=== PATIENT | male | born 1985 | race Caucasian/White ===

== ENCOUNTER 2018-12-01 01:34 | Inpatient (IN) | payer BC, OTHER ==
[~2018-12-01] VITALS: Ht 175.3 cm; Wt 111.0 kg
[2018-12-01] MEDS ORDERED: MAALOX 30 ML SUSP *UDC PO PRN (02:30)
[2018-12-01] MEDS ORDERED: ACETAMINOPHEN TAB 650MG DOSE (2X325MG) PO PRN (02:30)
[2018-12-01] MEDS ORDERED: MOM 30ML SUSPENSION UDC PO PRN (02:30)
[2018-12-01] MEDS ORDERED: PHARMACY COMMENT (02:53)
[2018-12-01 03:53] VITALS: BP 168/94
[2018-12-01] MEDS ORDERED: TRAZ150T90 PO (08:50)
[2018-12-01] MEDS ORDERED: SAXE1INJ SQ (08:50)
[2018-12-01] MEDS ORDERED: ROSU10TA5 PO (08:50)
[2018-12-01] MEDS ORDERED: ESCI10TA2 PO (08:50)
[2018-12-01] MEDS ORDERED: OMEP-221 PO (08:50)
[2018-12-01] MEDS ORDERED: HYDR-3363 PO (08:50)
[2018-12-01] MEDS ORDERED: ESCITALOPRAM OXALATE 10 MG TAB (LEXAPRO) PO ONE ×2 (09:00→13:00)
[2018-12-01] MEDS ORDERED: ESCITALOPRAM OXALATE 10 MG TAB (LEXAPRO) PO SCH (09:00)
--- NOTE | 2018-12-01 10:43 | HPEPDOC ---
[facility] Medical History & Physical Date of Admission Dec 01, 2018 History and Physical CHIEF COMPLAINT: Stress at home HISTORY OF PRESENT ILLNESS: Patient is a 33-year-old male with past medical history of hyperlipidemia, GERD and elevated blood pressure not on medication presented to mental health unit after undergoing stressor events at home. He states that he is just stress but feels fine. Denies any suicidal ideation or significant depression. Patient has no prior history of mental health illness and medically generally healthy only on cholesterol medication chronically. He s tates that his blood pressure was noted to be elevated about 2 years back and has been working on lifestyle modifications recently by going to the gym more often and trying to lose weight. He denies any physical complaints including chest pain, shortness of breath, fever or chills. PAST MEDICAL HISTORY: Refer to [facility] SOCIAL HISTORY: Denies tobacco, alcohol or illicit drug use. FAMILY HISTORY: Grandfather had diabetes ALLERGIES: Please see below. REVIEW OF SYSTEMS: 10 point review of system negative except as stated in HPI HOME MEDICATIONS: Please see below. PHYSICAL EXAMINATION: General: No acute distress, Alert Eyes: Normal sclera, EOMI, SG HENT: Atraumatic, neck supple, moist mucous membranes Cardiovascular: Normal rate, normal rhythm. No murmurs appreciated. Pulmonary: Clear to auscultation b/l, no wheezing GI: Soft, nontender, nondistended Skin: Warm and dry Neuro: CN grossly intact. No focal deficits. Strengths equal b/l. Psych: oriented x 3 LABORATORY DATA: See below. IMAGING: None MICROBIOLOGY: Please see below. ASSESSMENT AND PLAN: 1. Stress 2/2 recent life events - c/w counseling and care through Psych. - No active suicidal ideation. - No prior mental health illness/diagnosis. 2. Elevated BP - Has been known for 2 years and remained elevated. - Counseled on lifestyle modifications and need to continue to lose weight. - Will start on Norvasc 5 mg daily. - Monitor BP. 3. HLD - Resume home medications. Vital Signs Vital Signs Date Time Temp Pulse Resp B/P (MAP) Pulse Ox O2 Delivery O2 Flow Rate FiO2 12/01/18 08:50 Room Air 12/01/18 03:53 97.4 56 18 168/94 (118) 12/01/18 03:19 98 Home Medications Scheduled Escitalopram Oxalate (Escitalopram Oxalate) 10 Mg Tablet, 10 MG PO DAILY for . Liraglutide (Saxenda) 3 Mg/0.5 Ml Pen.injctr, 1 DOSE SQ DAILY for . INJECT 0.6MG SUBCUTANEOUSLY ONCE DAILY FOR 1 WEEK THEN INCREASE BY 0.6MG DAY IN WEEKLY INTERVALS UNTIL 3MG DAILY Omeprazole (Omeprazole) 40 Mg Capsule.dr, 40 MG PO DAILY for ACID REFLUX Rosuvastatin Calcium (Rosuvastatin Calcium) 10 Mg Tablet, 10 MG PO DAILY for CHOLESTEROL Scheduled PRN Hydroxyzine HCl (Hydroxyzine HCl) 25 Mg Tablet, 25 MG PO TID PRN for ANXIETY MAY TAKE 2 TABS IF NEEDED Trazodone HCl (Trazodone HCl) 150 Mg Tablet, 150 MG PO QHS PRN for SLEEP Allergies Coded Allergies: Sulfa (Sulfonamide Antibiotics) (Verified Allergy, Unknown, 12/01/18) bromide salts (Unverified Allergy, Unknown, 12/01/18) metoclopramide (Unverified Allergy, Unknown, 12/01/18) minoxidil (Verified Allergy, Unknown, 12/01/18) ELVA BROWN MD Dec 01, 2018 10:43
[2018-12-01] MEDS: amLODIPine 5 MG TAB PO SCH (11:18)
[2018-12-01 11:35] LABS: HEMATOCRIT 51.6 % (42.0-52.0); HEMOGLOBIN 17.7 g/dl (13.5-17.5); MEAN CORPUSCULAR HEMOGLOBIN 28.6 pg (27.0-33.0); MEAN CORPUSCULAR HGB CONC 34.3 g/dl (32.0-36.5); MEAN CORPUSCULAR VOLUME 83.5 fl (80.0-96.0); PLATELET COUNT, AUTOMATED 264 10^3/uL (150-450); RED BLOOD COUNT 6.18 10^6/uL (4.30-6.10); WHITE BLOOD COUNT 7.5 10^3/uL (4.0-10.0)
--- NOTE | 2018-12-01 12:02 | MHHPEPDOC ---
General Date Of Admission: Dec 01, 2018 Legal Status: 9.37 Chief Complaint "My took the kids and left me... she emptied the house." History of Present Illness HISTORY OF THE PRESENT ILLNESS: Patient is a 33 -year-old , male, with no previous psych history who was sent from [facility] (where his mother is the director of ) to [facility] for depression and SI with plan to shoot himself but per family ([facility] records) couldn't find bullets but had gun out and parents took it away from him and removed it from home after his left with his 2 stepsons 2wks ago and emptied to house of all furnishings two days ago leaving him alone to deal with the financial burden of paying for the home. Pt per [facility], records endorsing depression, SI ("there's no reason to go on living anymore"), anxiety. He was reported as tearful and upset. Once at [facility] ED, pt denied SI/HI and appeared fine, not tearful. He did endorse feeling depressed with anxiety, poor appetite, and insomnia since his left him. He did admit to getting his gun out but stated he was unsure why and stated he didn't plan to load it, denied that he wanted to shot himself. Told ED that he believes his mother talked to staff at [facility] to "convince" them to send him here for admission. Stated he doesn't think he needs to be here. Psychiatric Review of Systems Depression (2 or more weeks): depressed mood, insomnia/hypersomnia (insomnia), difficulty concentrating, appetite changes, suicidal thoughts Arabella (4 or more days of): denies Psychosis: denies PTSD: denies Anxiety: situational anxiety, stressor related anxiety Anxiety/ 6 months or more of: restlessness, keyed up, difficulty concentrating, sleep disturbance Past Psychiatric History Previous Psychiatric Diagnosis: depression Previous Psychiatric Admissions: denies Suicide Attempts: denies Psychiatric Follow-up: just started seeing Dr. Kiser at [facility] Psychiatric medications: just started on lexapro and trazodone Past Medical History Medical Problems asthma, high cholesterol, gerd Head Injury: No Seizures: No Hospitalizations: No Surgeries: Yes (rt acl and meniscus repair, lt ankle repair) Family Medical/Psychiatric HX Medical Problems noncontributory Psychiatric Disorders: No Addiction: No Suicide Attemps/Completions: No Addiction History denies Social History Childhood: born and raised [place], [place]. 2 parent home, 1 younger sister 29y/o. Good childhood. Abuse/Trauma:denies Current Living Situation: lives alone since left with his suad but is currently staying with his parents past few days Education: high school grad Employment: collections officer at [employer] Social Support: parents Legal: denies Marital: , 2 stepsons age 11y/o and 2ry/o Mental Status Examination General Appearance: well groomed, appears stated age, hospital scubs/clothing Build: average Demeanor: average Eye Contact: average Activity: average Behavior: cooperative Speech: clear, normal volume, reg/rate,rhythm,volume Mood: depressed, anxious Mood "alright" Affect: incongruent, anxious Thought Process: logical/linear, intact Thought Content (Delusions): none reported, denies SI, HI, AVH Thought Content (Other): none reported, appropriate Thought Content (Aggressive): none reported Perception (Hallucinations): none reported Perception (Other): none reported Cognition (Impairment of): none reported Cognition(Intelligence Est.): average Oriented: Awake, Alert, Oriented times three Insight: fair Judgment: Fair Psychosis: Denies Diagnoses depression unspecified r/o adjustment d/o with depression and anxiety Assessment Pt seen and states he's here b/c his left him 2wks ago and "it was a normal reaction." States he started seeing a counselor prior to his leaving him for depression but his counselor was out of town so his mother told him that he could go to [facility] and talk to someone. States "I never said I was going to kill myself... my gun was in the cabinet... I never got it out... my parents took them out of the cabinet and from the home). Pt state he doesn't know why the [facility], [facility] records state differently when asked about it. States he feels good today. Denies SI/HI. States he's tolerating his lexapro and trazodone started 3wks ago and feels they're beneficial. Agreeable to increasing lexapro for improved treatment of mood/anxiety. Pt asking to leave him and advised him that he must be monitored over the weekend to determine if safe for d/c on account off collateral info from [facility] and [facility] that do not coincide with his statements. Initial Treatment Plan 1. Patient was admitted on a [9.39] status. 2. Complete history was obtained. 3. With patients permission, family will be contacted and database will be expanded. 4. Patients medication regimen will be reviewed and changed accordingly. 5. Patient will be provided with protected environment. 6. Patient will be treated with individual, group, and milieu therapies. 7. Patient will receive supportive psych-education. 8. Discharge planning will commence immediately. 9. Outpatient follow-up treatment will be strongly recommended. 10. The initial treatment plan will focus initially on: * Depression. * Risk for suicide. * Substance abuse. 11. increase lexapro 20mg daily, continue trazodone ESTIMATED LENGTH OF STAY: 3-5 DAYS. TIME SPENT COUNSELING AND COORDINATING INITIAL CARE: 60 minutes. Vital Signs Vital Signs Date Time Temp Pulse Resp B/P (MAP) Pulse Ox O2 Delivery O2 Flow Rate FiO2 12/01/18 11:18 100 136/85 12/01/18 08:50 Room Air 12/01/18 03:53 97.4 18 12/01/18 03:19 98 Medications Scheduled Escitalopram Oxalate (Escitalopram Oxalate) 10 Mg Tablet, 10 MG PO DAILY for . , (Reported) Liraglutide (Saxenda) 3 Mg/0.5 Ml Pen.injctr, 1 DOSE SQ DAILY for . , (Reported) INJECT 0.6MG SUBCUTANEOUSLY ONCE DAILY FOR 1 WEEK THEN INCREASE BY 0.6MG DAY IN WEEKLY INTERVALS UNTIL 3MG DAILY Omeprazole (Omeprazole) 40 Mg Capsule.dr, 40 MG PO DAILY for ACID REFLUX, (Rep orted) Rosuvastatin Calcium (Rosuvastatin Calcium) 10 Mg Tablet, 10 MG PO DAILY for CHOLESTEROL, (Reported) Scheduled PRN Hydroxyzine HCl (Hydroxyzine HCl) 25 Mg Tablet, 25 MG PO TID PRN for ANXIETY, (Reported) MAY TAKE 2 TABS IF NEEDED Trazodone HCl (Trazodone HCl) 150 Mg Tablet, 150 MG PO QHS PRN for SLEEP, (Reported) Allergies Coded Allergies: Sulfa (Sulfonamide Antibiotics) (Verified Allergy, Unknown, 12/01/18) bromide salts (Unverified Allergy, Unknown, 12/01/18) metoclopramide (Unverified Allergy, Unknown, 12/01/18) minoxidil (Verified Allergy, Unknown, 12/01/18) GERARDO BRONSON DO Dec 01, 2018 12:02
[2018-12-01 13:54] LABS: ALBUMIN 4.2 GM/DL (3.2-5.2); ALT/SGPT 50 U/L (12-78); BILIRUBIN,TOTAL 0.7 MG/DL (0.2-1.0); BLOOD UREA NITROGEN 14 MG/DL (7-18); CALCIUM LEVEL 9.3 MG/DL (8.5-10.1); CARBON DIOXIDE LEVEL 25 MEQ/L (21-32); CHLORIDE LEVEL 110 MEQ/L (98-107); CREATININE FOR GFR 1.08 MG/DL (0.70-1.30); GLOMERULAR FILTRATION RATE > 60.0 (>60); GLUCOSE, FASTING 78 MG/DL (70-100); POTASSIUM SERUM 4.2 MEQ/L (3.5-5.1); SODIUM LEVEL 142 MEQ/L (136-145); TOTAL PROTEIN 6.9 GM/DL (6.4-8.2)
[2018-12-01 18:04] VITALS: BP 144/74
[2018-12-01] MEDS: traZODone 50 MG TAB PO PRN (20:56)
[2018-12-02 07:03] VITALS: BP 140/92
[2018-12-02] MEDS: amLODIPine 5 MG TAB PO SCH (08:44)
[2018-12-02] MEDS: ROSUVASTATIN 10 MG TAB (CRESTOR) PO SCH (08:44)
[2018-12-02] MEDS: ESCITALOPRAM OXALATE 10 MG TAB (LEXAPRO) PO SCH (08:45)
[2018-12-02 10:01] LABS: HEMATOCRIT 53.1 % (42.0-52.0); HEMOGLOBIN 17.9 g/dl (13.5-17.5); MEAN CORPUSCULAR HEMOGLOBIN 28.5 pg (27.0-33.0); MEAN CORPUSCULAR HGB CONC 33.7 g/dl (32.0-36.5); MEAN CORPUSCULAR VOLUME 84.7 fl (80.0-96.0); PLATELET COUNT, AUTOMATED 249 10^3/uL (150-450); RED BLOOD COUNT 6.27 10^6/uL (4.30-6.10); WHITE BLOOD COUNT 6.4 10^3/uL (4.0-10.0)
--- NOTE | 2018-12-02 12:13 | IPNPDOC ---
Date Seen The patient was seen on 12/02/18. Progress Note SUBJECTIVE: Patient is a 33 year old Male with HLD, GERD and elevated BP intermittently for the past 2 years admitted to mental health unit after facing stressors at home. Interval history: Patient reported feeling well this morning, denying any complaints. BP improved since yesterday, started on Norvasc 5 mg. OBJECTIVE PHYSICAL EXAMINATION: VITAL SIGNS: Please see below. Eyes: Normal sclera, EOMI, SG HENT: Atraumatic, neck supple, moist mucous membranes Cardiovascular: Normal rate, normal rhythm. No murmurs appreciated. Pulmonary: Clear to auscultation b/l, no wheezing GI: Soft, nontender, nondistended Skin: Warm and dry Neuro: CN grossly intact. No focal deficits. Strengths equal b/l. Psych: oriented x 3 LABORATORY DATA, IMAGING STUDIES, MICROBIOLOGY: Please see below. ASSESSMENT AND PLAN: 1. Stress 2/2 recent life events - c/w counseling and care through Psych. - No active suicidal ideation. - No prior mental health illness/diagnosis. 2. Elevated BP - Has been known for 2 years and remained elevated. - Counseled on lifestyle modifications and need to continue to lose weight. - Started on Norvasc 5 mg daily with improvement. - Monitor BP. 3. HLD - Resume home medications. 4. Elevated Hb/Hct - Hb 17.7->17.9. Hct 53. - Asymptomatic. Does not seem to be severely dehydrated. - Consider workup for Polycythemia vera, can likely be done as outpatient. - Unsure with his PMD had worked him up for this prior. VS, I&O, 24H, Fishbone Vital Signs/I&O Vital Signs Date Time Temp Pulse Resp B/P (MAP) Pulse Ox O2 Delivery O2 Flow Rate FiO2 12/02/18 08:44 98 130/80 12/02/18 07:03 99.0 14 12/01/18 08:50 Room Air 12/01/18 03:19 98 Laboratory Data 24H LABS Laboratory Tests 2 12/02/18 08:57: Nucleated Red Blood Cells % (auto) 0.0 CBC/BMP Laboratory Tests 12/02/18 08:57 Red Blood Count 6.27 H, Mean Corpuscular Volume 84.7, Mean Corpuscular Hemoglobin 28.5, Mean Corpuscular Hemoglobin Concent 33.7, Red Cell Distribution Width 12.8 ELVA BROWN MD Dec 02, 2018 12:13
--- NOTE | 2018-12-02 15:43 | MHIPN ---
DATE: 12/01/2018 CHIEF COMPLAINT: Says feels okay. SUBJECTIVE: Seen for followup in the presence of staff. Says feels okay and less stressed. Says is away from the scene of stress physically as well. Denies any thoughts of harming himself or anyone else. MENTAL STATUS EXAMINATION: Neat and cooperative. No agitation. No psychomotor retardation. Coherent. Affect is reactive, though a bit restricted. He denies any suicidal thoughts or intents. No homicidal ideas or intents. No evidence of any psychosis. Cognition is grossly intact. Judgment and insight possibly somewhat improved. ASSESSMENT: Unspecified depressive disorder. Possibility of adjustment disorder with depression and anxiety is also considered. PLAN: Continue current care, observations. Anticipate discharge fairly soon. VITAL SIGNS: Blood pressure 130/80, pulse 98, temperature 99.
[2018-12-02 18:00] VITALS: BP 143/68
[2018-12-02] MEDS: traZODone 50 MG TAB PO PRN (21:32)
[2018-12-03 06:24] VITALS: BP 142/73
[2018-12-03 07:41] LABS: HEMATOCRIT 50.9 % (42.0-52.0); HEMOGLOBIN 17.2 g/dl (13.5-17.5); MEAN CORPUSCULAR HEMOGLOBIN 28.6 pg (27.0-33.0); MEAN CORPUSCULAR HGB CONC 33.8 g/dl (32.0-36.5); MEAN CORPUSCULAR VOLUME 84.7 fl (80.0-96.0); PLATELET COUNT, AUTOMATED 243 10^3/uL (150-450); RED BLOOD COUNT 6.01 10^6/uL (4.30-6.10); WHITE BLOOD COUNT 7.7 10^3/uL (4.0-10.0)
[2018-12-03] MEDS: ROSUVASTATIN 10 MG TAB (CRESTOR) PO SCH (08:05)
[2018-12-03] MEDS: ESCITALOPRAM OXALATE 10 MG TAB (LEXAPRO) PO SCH (08:05)
[2018-12-03] MEDS: amLODIPine 5 MG TAB PO SCH (08:05)
--- NOTE | 2018-12-03 09:23 | IPNPDOC ---
Date Seen The patient was seen on 12/03/18. Progress Note SUBJECTIVE: Patient is a 33 year old Male with HLD, GERD and elevated BP intermittently for the past 2 years admitted to mental health unit after facing stressors at home. Interval history: Patient continues to report feeling well with no issues. BP is better controlled. OBJECTIVE PHYSICAL EXAMINATION: VITAL SIGNS: Please see below. Eyes: Normal sclera, EOMI, SG HENT: Atraumatic, neck supple, moist mucous membranes Cardiovascular: Normal rate, normal rhythm. No murmurs appreciated. Pulmonary: Clear to auscultation b/l, no wheezing GI: Soft, nontender, nondistended Skin: Warm and dry Neuro: CN grossly intact. No focal deficits. Strengths equal b/l. Psych: oriented x 3 LABORATORY DATA, IMAGING STUDIES, MICROBIOLOGY: Please see below. ASSESSMENT AND PLAN: 1. Stress 2/2 recent life events - c/w counseling and care through Psych. - No active suicidal ideation. - No prior mental health illness/diagnosis. 2. Elevated BP - Has been known for 2 years and remained elevated. - Counseled on lifestyle modifications and need to continue to lose weight. - Started on Norvasc 5 mg daily with improvement. - Monitor BP. 3. HLD - Resume home medications. 4. Elevated Hb/Hct - Hb 17.7->17.9. Hct 53. - Asymptomatic. Does not seem to be severely dehydrated. - Consider workup for Polycythemia vera, can likely be done as outpatient. - Discussed with patient, he had no knowledge of having high Hb in the past. - Unsure with his PMD had worked him up for this prior, advised to speak to his primary care physician. Will sign off today. Please let us know if there is anything we can assist with. VS, I&O, 24H, Fishbone Vital Signs/I&O Vital Signs Date Time Temp Pulse Resp B/P (MAP) Pulse Ox O2 Delivery O2 Flow Rate FiO2 12/03/18 08:05 75 134/91 12/03/18 06:24 98.7 16 12/01/18 08:50 Room Air 12/01/18 03:19 98 Laboratory Data 24H LABS Laboratory Tests 2 12/03/18 07:05: Nucleated Red Blood Cells % (auto) 0.0 CBC/BMP Laboratory Tests 12/03/18 07:05 Red Blood Count 6.01, Mean Corpuscular Volume 84.7, Mean Corpuscular Hemoglobin 28.6, Mean Corpuscular Hemoglobin Concent 33.8, Red Cell Distribution Width 12.8 ELVA BROWN MD Dec 03, 2018 09:23
[2018-12-03 18:00] VITALS: BP 136/73
[2018-12-03] MEDS: traZODone 50 MG TAB PO PRN (21:46)
[2018-12-04 06:17] VITALS: BP 162/97
[2018-12-04 06:39] VITALS: BP 140/84
[2018-12-04] MEDS: ESCITALOPRAM OXALATE 10 MG TAB (LEXAPRO) PO SCH (08:26)
[2018-12-04] MEDS: ROSUVASTATIN 10 MG TAB (CRESTOR) PO SCH (08:26)
[2018-12-04 08:27] VITALS: BP 143/88
[2018-12-04] MEDS: amLODIPine 5 MG TAB PO SCH (08:27)
--- NOTE | 2018-12-04 08:55 | MHDSPDOC ---
[facility] Discharge Summary Discharge Summary DATE OF ADMISSION: Dec 01, 2018 at 2:30 am DATE OF DISCHARGE: December 04, 2018 DISCHARGE DIAGNOSES: depression unspecified r/o adjustment d/o with depression and anxiety REASON FOR ADMISSION: Patient is a 33 -year-old , male, with no previous psych history who was sent from [facility] (where his mother is the director of ) to [facility] for depression and SI with plan to shoot himself but per family ([facility] records) couldn't find bullets but had gun out and parents took it away from him and removed it from home after his left with his 2 stepsons 2wks ago and emptied to house of all furnishings two days ago leaving him alone to deal with the financial burden of paying for the home. Pt per [facility], records endorsing depression, SI ("there's no reason to go on living anymore"), anxiety. He was reported as tearful and upset. Once at [facility] ED, pt denied SI/HI and appeared fine, not tearful. He did endorse feeling depressed with anxiety, poor appetite, and insomnia since his left him. He did admit to getting his gun out but stated he was unsure why and stated he didn't plan to load it, denied that he wanted to shot himself. Told ED that he believes his mother talked to staff at [facility] to "convince" them to send him here for admission. Stated he doesn't think he needs to be here. CONSULTANTS INVOLVED: none TREATMENT AND PROGRESS ON THE UNIT : Pt was admitted to [facility], seen for psychiatric assessment and restarted on his outpatient medication prozac increase to 20mg daily. He was provided trazodone 50mg qhs prn insomnia. Pt found his medications beneficial and tolerated them well. He attended groups daily during his stay. His symptoms improved with treatment. On day of discharge he denied depression, anxiety, insomnia, SI/HI, hallucinations, delusions. He was discharged home with follow-up at [facility] in [place], [place]. He felt safe for discharge. DISCHARGE ASSESSMENT: Pt seen and states doing "good" today and is looking forward to going home. States he had a good weekend walking the milieu, going to groups, and watching movies with his peers. States he's tolerating his medications and finding them beneficial. Slept well last night. Denies depression, anxiety, insomnia, SI/HI, hallucinations, delusions. Feels safe to be discharged. MENTAL STATUS EXAMINATION ON DISCHARGE: General Appearance: well groomed, appears stated age, hospital scrubs/clothing Build: average Demeanor: average Eye Contact: average Activity: average Behavior: cooperative Speech: clear, normal volume, reg/rate,rhythm,volume Mood: euthymic, full, bright Mood "good" Affect: euthymic, full, bright Thought Process: logical/linear, intact Thought Content (Delusions): none reported, denies SI, HI, AVH Thought Content (Other): none reported, appropriate Thought Content (Aggressive): none reported Perception (Hallucinations): none reported Perception (Other): none reported Cognition (Impairment of): none reported Cognition(Intelligence Est.): average Oriented: Awake, Alert, Oriented times three Insight: good Judgment: good Psychosis: Denies MEDICATIONS ON DISCHARGE: lexapro 20mg daily trazodone 50mg qhs prn insomnia PLAN/FOLLOWUP ARRANGEMENTS: D/c home with follow-up at [facility] in [place], [place]. The amount of time spent in the coordination of care for this patient was approximately 30 minutes. Vital Signs/I&Os Vital Signs Date Time Temp Pulse Resp B/P (MAP) Pulse Ox O2 Delivery O2 Flow Rate FiO2 12/04/18 08:27 98 143/88 12/04/18 06:17 97.7 16 12/01/18 08:50 Room Air 12/01/18 03:19 98 Medications Scheduled Escitalopram Oxalate (Escitalopram Oxalate) 10 Mg Tablet, 10 MG PO DAILY for . , (Reported) Liraglutide (Saxenda) 3 Mg/0.5 Ml Pen.injctr, 1 DOSE SQ DAILY for . , (Reported) INJECT 0.6MG SUBCUTANEOUSLY ONCE DAILY FOR 1 WEEK THEN INCREASE BY 0.6MG DAY IN WEEKLY INTERVALS UNTIL 3MG DAILY Omeprazole (Omeprazole) 40 Mg Capsule.dr, 40 MG PO DAILY for ACID REFLUX, (Reported) Rosuvastatin Calcium (Rosuvastatin Calcium) 10 Mg Tablet, 10 MG PO DAILY for CHOLESTEROL, (Reported) Scheduled PRN Hydroxyzine HCl (Hydroxyzine HCl) 25 Mg Tablet, 25 MG PO TID PRN for ANXIETY, (Reported) MAY TAKE 2 TABS IF NEEDED Trazodone HCl (Trazodone HCl) 150 Mg Tablet, 150 MG PO QHS PRN for SLEEP, (Reported) Allergies Coded Allergies: Sulfa (Sulfonamide Antibiotics) (Verified Allergy, Unknown, 12/01/18) bromide salts (Unverified Allergy, Unknown, 12/01/18) metoclopramide (Unverified Allergy, Unknown, 12/01/18) minoxidil (Verified Allergy, Unknown, 12/01/18) GERARDO BRONSON DO Dec 04, 2018 8:55 am
[2018-12-04] MEDS ORDERED: TRAZO50TA PO (08:59)
[2018-12-04] MEDS ORDERED: PROZ20CA11 PO (08:59)
--- NOTE | 2018-12-04 09:12 | MHIPN ---
DATE: 12/03/2018 CHIEF COMPLAINT: Feels better. SUBJECTIVE: Seen for followup. Indicates had a good night, and a good day, expects some visitors today, says has been feeling well. MENTAL STATUS EXAMINATION: He is neat. He is cooperative. There is no agitation. No psychomotor retardation. He is coherent. Affect is reactive, very broad. Denies any thoughts of harming himself or anyone. No evidence of any psychosis. Cognition grossly intact. Judgment good. Insight is improved. ASSESSMENT: Unspecified depressive disorder. Continue current care, observations. Anticipate discharge in the near future. VITAL SIGNS: Blood pressure 134/91, pulse 75, temperature 98.7.
== END 2018-12-04 10:18 | disposition home or self-care (01) | DRG 754 ==
LOC: M ED 01:34 → M ED INP 02:30 → M PSY 03:29
PROVIDERS: ADMIT Psychiatry & Neurology Psychiatry; ATTEND Psychiatry & Neurology Psychiatry
DX: F32.9 Major depressive disorder, single episode, unspecified (principal); R45.851 Suicidal ideations; F43.23 Adjustment disorder with mixed anxiety and depressed mood; Z79.899 Other long term (current) drug therapy; Z88.2 Allergy status to sulfonamides; Z88.8 Allergy status to other drugs, medicaments and biological substances; E78.5 Hyperlipidemia, unspecified; K21.9 Gastro-esophageal reflux disease without esophagitis